=== PATIENT | female | born 1975 | race Caucasian/White ===

== ENCOUNTER → 2016-07-12 | Outpatient (CLI) | payer MEDICAID | END | disposition home or self-care (01) | LOC: Rad HDHVI 13:02 | PROVIDERS: ATTEND Internal Medicine Cardiovascular Disease | DX: R00.2 Palpitations (principal) | CPT/HCPCS: 93306 ==

== ENCOUNTER → 2016-08-01 | Outpatient (CLI) | payer MEDICAID ==
[~2016-08-01] VITALS: Ht 170.2 cm; Wt 117.9 kg
== END | disposition home or self-care (01) ==
LOC: Rad HDHVI 13:38
PROVIDERS: ATTEND Internal Medicine Cardiovascular Disease
DX: Z01.810 Encounter for preprocedural cardiovascular examination (principal); R00.2 Palpitations; K21.9 Gastro-esophageal reflux disease without esophagitis
CPT/HCPCS: 71020; 93017